=== PATIENT | female | born 1965 | race Caucasian/White ===

== ENCOUNTER 2021-02-21 18:20 | Emergency (ER) | payer BC ==
[2021-02-21] MEDS ORDERED: IBUPROFEN800 MG PO (19:47)
[2021-02-21] MEDS ORDERED: CYCLOBENZAPRINE10 MG PO (19:47)
== END 2021-02-21 20:03 | disposition home or self-care (01) ==
LOC: ER1 18:20
DX: S82.831A Other fracture of upper and lower end of right fibula, initial encounter for closed fracture (principal); S63.501A Unspecified sprain of right wrist, initial encounter; S80.02XA Contusion of left knee, initial encounter; W19.XXXA Unspecified fall, initial encounter; Y92.009 Unspecified place in unspecified non-institutional (private) residence as the place of occurrence of the external cause
CPT/HCPCS: 73110; 73564; 73610; 99283